=== PATIENT | female | born 1990 | race Caucasian/White ===

== ENCOUNTER 2016-07-22 09:00 | Inpatient (IN) | payer OTHER ==
[~2016-07-22] VITALS: Ht 167.6 cm; Wt 55.0 kg
[2016-07-29] VITALS (26 sets, daily range): BP systolic 102–146; BP diastolic 55–80; PULSE 55–70; RESP 14–25; Ht 167.6 cm; Wt 55.0 kg
--- NOTE | 2016-07-29 06:43 | HPN ---
Date/Time of Note Date/Time of Note DATE: 07/29/16 TIME: 06:43 Interval H&P Admission Note Pt. seen H&P reviewed: No system changes BALA RIGGINS MD Jul 29, 2016 06:43
[2016-07-29] MEDS ORDERED: NEOSTIGMINE 3 MG/3 ML SYRINGE ONE (07:00)
[2016-07-29] MEDS ORDERED: GLYCOPYRROLATE 0.4 MG INJ ONE (07:00)
[2016-07-29] MEDS ORDERED: ROCURONIUM 50 MG INJ ONE (07:00)
[2016-07-29] MEDS ORDERED: DEXAMETHASONE 1 MG TAB PO ONE (10:00)
[2016-07-29] MEDS ORDERED: GABAPENTIN 300 MG CAP PO ONE (10:00)
[2016-07-29] MEDS: BUPIVACAINE 0.5% (SDV) 30 ML, morphine SULFATE (PF) 8 MG, EPINEPHrine 0.3 MG, KETOROLAC... IRR SCH ×14 (10:00→12:17)
[2016-07-29] MEDS ORDERED: traMADol 50 MG TAB PO ONE (10:00)
[2016-07-29 10:39] LABS: ADD SCAN DIFF NO
[2016-07-29 10:43] LABS: BASOPHILS % 0.8 % (0.0-2.0); EOSINOPHILS # 0.1 10^3/ul (0.0-0.5); EOSINOPHILS % 2.4 % (0.0-7.0); HEMATOCRIT 33.4 % (37.0-47.0); HEMOGLOBIN 11.4 g/dl (12.0-16.0); LYMPHOCYTES # 2.3 10^3/ul (0.8-2.9); LYMPHOCYTES % 45.2 % (15.0-51.0); MEAN CORPUSCULAR HGB CONC 34.1 g/dl (32.0-37.0); MEAN CORPUSCULAR VOLUME 99.7 fl (82.0-101.0); MEAN PLATELET VOLUME 8.7 fl (7.4-10.4); MONOCYTE # 0.4 10^3/ul (0.3-0.9); MONOCYTES % 8.8 % (0.0-11.0); NEUTROPHIL # 2.1 10^3/ul (1.6-7.5); NEUTROPHILS % 42.6 % (39.0-77.0); PLATELET COUNT 286 10^3/UL (140-415); RED BLOOD COUNT 3.35 10^6/ul (4.20-5.40); RED CELL DISTRIBUTION WIDTH 11.6 % (11.5-14.5)
[2016-07-29 10:46] LABS: INR 0.98; PARTIAL THROMBOPLASTIN TIME 32.5 Sec (25.0-35.0)
[2016-07-29] MEDS ORDERED: SOD CHLORIDE 0.9% 1,000 ML IV SCH (11:00)
[2016-07-29 11:19] LABS: ADD UMIC NO; URINE BILIRUBIN (Dip) NEGATIVE (NEGATIVE); URINE BLOOD (Dip) NEGATIVE (NEGATIVE); URINE COLOR LT. YELLOW (YELLOW); URINE GLUCOSE (Dip) NEGATIVE (NEGATIVE); URINE KETONES (Dip) NEGATIVE (NEGATIVE); URINE LEUKOCYTE ESTERASE (Dip) NEGATIVE (NEGATIVE); URINE NITRITE (Dip) NEGATIVE (NEGATIVE); URINE TOTAL PROTEIN (Dip) NEGATIVE (NEGATIVE); URINE UROBILINOGEN (Dip) 0.2 E.U./dL (0.1-1.0)
[2016-07-29] MEDS ORDERED: MORP15TA92 PO (11:25)
[2016-07-29] MEDS ORDERED: MODA200T35 PO (11:34)
[2016-07-29] MEDS ORDERED: LOSA25TA5 PO (11:34)
[2016-07-29] MEDS ORDERED: QUET50TA16 PO (11:34)
[2016-07-29] MEDS ORDERED: ALBU2.5V9 IH (11:34)
[2016-07-29] MEDS ORDERED: DOCU-144 PO (11:34)
[2016-07-29] MEDS ORDERED: INDO75CA PO (11:34)
[2016-07-29] MEDS ORDERED: DULO60CA6 PO (11:34)
[2016-07-29] MEDS ORDERED: LISD30CA5 PO (11:34)
[2016-07-29] MEDS ORDERED: LAMO200T18 PO (11:34)
[2016-07-29] MEDS ORDERED: MONT10TA21 PO (11:34)
[2016-07-29] MEDS ORDERED: POLY17PO6 PO (11:34)
[2016-07-29] MEDS ORDERED: GABA250S4 PO (11:34)
[2016-07-29] MEDS ORDERED: ETOMIDATE 20 MG INJ ONE (11:44)
[2016-07-29] MEDS ORDERED: FENTAnyl 50 MCG/ML VIAL ONE ×2 (11:44→13:26)
[2016-07-29] MEDS ORDERED: DEXAMETHASONE 4 MG/ML 1 ML INJ ONE (11:44)
[2016-07-29] MEDS ORDERED: ONDANSETRON 4 MG INJ ONE (11:44)
[2016-07-29] MEDS ORDERED: MIDAZOLAM 1 MG/ML 2 ML INJ ONE (11:44)
[2016-07-29] MEDS ORDERED: LIDOCAINE 100 MG SYRINGE ONE (11:44)
[2016-07-29] MEDS ORDERED: LABETALOL HCL 20MG INJ ONE (11:44)
[2016-07-29] MEDS ORDERED: EPHEDrine SULFATE 50 MG/5 ML SYG ONE (11:44)
[2016-07-29] MEDS ORDERED: CEFAZOLIN 1 GM INJ ONE (12:11)
[2016-07-29] MEDS ORDERED: METOCLOPRAMIDE 10 MG INJ ONE (13:16)
[2016-07-29] MEDS ORDERED: ONDANSETRON 4 MG INJ IV PRN ×2 (13:30)
[2016-07-29] MEDS ORDERED: LABETALOL HCL 20MG INJ IV PRN (13:30)
[2016-07-29] MEDS ORDERED: TRIMETHOBENZAMIDE 100 MG/ML VIAL IM PRN (13:30)
[2016-07-29] MEDS ORDERED: EPHEDrine SULFATE 50 MG/5 ML SYG IV PRN (13:30)
[2016-07-29] MEDS ORDERED: morphine LIQ (10 MG/5 ML) CUP PO PRN ×2 (13:30→17:31)
[2016-07-29] MEDS ORDERED: ZOLPIDEM 5 MG TAB PO PRN (13:30)
[2016-07-29] MEDS ORDERED: DIPHENHYDRAMINE 50 MG INJ IV PRN ×2 (13:30)
[2016-07-29] MEDS ORDERED: MAGNESIUM HYDROXIDE 30ML CUP PO PRN (13:30)
[2016-07-29] MEDS ORDERED: FENTAnyl 50 MCG/ML VIAL IV PRN ×2 (13:30)
[2016-07-29] MEDS ORDERED: hydrALAzine 20 MG INJ IV PRN (13:30)
[2016-07-29] MEDS ORDERED: MIDAZOLAM 1 MG/ML 2 ML INJ IV PRN (13:30)
[2016-07-29] MEDS ORDERED: morphine 10 MG INJ IM PRN (13:30)
[2016-07-29] MEDS: FENTAnyl 50 MCG/ML VIAL IV PRN ×2 (13:42→13:49)
--- NOTE | 2016-07-29 14:20 | OPR ---
DATE OF OPERATION: 07/29/2016 PREOPERATIVE DIAGNOSIS: Left hip labral tear. POSTOPERATIVE DIAGNOSES: 1. Left hip labral tear 2. Left hip capsular laxity. PROCEDURES PERFORMED: 1. Left hip arthroscopic labral repair. 2. Left hip arthroscopic capsular closure. SURGEON: Bala Tello MD INFORMATION CLERK: Roly Aparicio MD Assistants surgeon, Roly Aparicio MD, was asked to be present at my request as a result of the complexi ty associated with the procedure, including positioning of the extremity, manipulation and protectio n of the neurovascular structures. In my opinion, the assistance offered by a hand frame surgical elastic knitter i s insufficient and Dr. Aparicio should be compensated for his time. PROCEDURE IN DETAIL: Following administration of general endotracheal anesthesia, the patient was p laced in the supine position on the [employer] traction device. The left lower extremity was then identified and properly prepped and draped. Traction was applied across the left lower extremi ty and diagnostic anterior and anterolateral portals were then established using endoscopic and fluo roscopic guidance. Diagnostic arthroscopy revealed that there is anterior labral tearing and frayin g with significant synovial reactive tissue in the anterior capsule and significant anterior capsula r laxity. More laterally, the labrum was relatively normal. The tear essentially was from the abou t 10 o'clock position to the 2 o'clock position. The ligamentum teres was normal. The articular ca rtilage of the acetabulum and femur were normal. Capsulotomy was then performed and carefully protected. The sublabral recess was then cleared of so ft tissue and two #2 sutures were then passed around the labrum circumferentially. Each of 2 suture s was incorporated into an Arthrex PushLock anchor. The anchors were impacted and a solid repair of the labrum was completed. Following the completion, the traction was removed. The peripheral comp artment was evaluated. No significant peripheral issues were noted. The capsular closure was then undertaken with the penetrator first on the lateral anchor. A mattress suture was created through t he lateral capsular tissue. Sliding knot was then used for imbrication of the lateral aspect of the capsule. A solid lateral closure was obtained. Following this, the arthroscope was then switched to the lateral portal. Through the anterior portal, the anterior suture was then also passed throug h the capsule in a mattress fashion and the capsular closure was completed. Good stability was note d. The joint was irrigated. The portals closed using interrupted 4-0 Monocryl sutures, Steri-Strips, s terile dressing. The patient was awakened, transported to recovery in stable condition, tolerating the procedure well. Dictated By: BALA ESTEVES/CED Conf#: [id number] DID#: [id number]
[2016-07-29] MEDS: LACTATED RINGER'S 1,000 ML IV SCH ×2 (15:23)
[2016-07-29] MEDS: morphine 2 MG INJ IV PRN (16:19)
--- NOTE | 2016-07-29 16:36 | RADRPT ---
PROCEDURE: Fluoroscopic assistance for a left hip arthropathy CLINICAL INDICATION: Left hip pain TECHNIQUE: Approximately 13.5 seconds of fluoroscopic assistance are provided under the supervisio n of Dr. Tello and August 31 intraoperative exposures are submitted to the PACS for review COMPARISON: None available FINDINGS: The images demonstrate metallic instruments consistent with arthroscopic projecting over the superio r aspect of the left hip joint. RPTAT:HJJR IMPRESSION: Fluoroscopic assistance for left hip arthroscopic surgery. Physician Zelalem Date Time Electronically viewed and signed by Physician Zelalem on 07/29/2016 16:36 /
--- NOTE | 2016-07-29 17:56 | PDOCDIS ---
Discharge Instructions DIAGNOSIS Discharge Diagnosis: left hip labral tear CONDITION Patient Condition: Good HOME CARE INSTRUCTIONS: Diet Instructions: Regular ACTIVITY: Activity Restrictions: Slowly Increase Activity Bathing Restrictions: Shower FOLLOW UP/APPOINTMENTS Appointments Two weeks SCHOOL/WORK RELEASE May return to School/Work with: With Restrictions School/Work Release Comment: Foot flat weight bearing for four weeks BALA RIGGINS MD Jul 29, 2016 17:56
[2016-07-29] MEDS: [UNRECOGNIZED DRUG - REMARK] XX SCH (18:00)
[2016-07-29] MEDS: DEXAMETHASONE 2 MG TAB PO SCH ×2 (18:36→23:47)
[2016-07-29] MEDS ORDERED: MONTELUKAST 10 MG TAB PO SCH (21:00)
[2016-07-29] MEDS ORDERED: ALBUTEROL 0.5% (NEB) 2.5 MG/0.5 ML AMP INH SCH (21:00)
[2016-07-29] MEDS ORDERED: LAMOTRIGINE 100 MG TAB PO SCH (21:00)
[2016-07-29] MEDS ORDERED: QUETIAPINE 25 MG TAB PO SCH (21:00)
[2016-07-29] MEDS ORDERED: DULOXETINE 20 MG CAP DR PO SCH (21:00)
[2016-07-29] MEDS ORDERED: GABAPENTIN 300 MG CAP PO SCH (21:00)
[2016-07-29] MEDS: SENNA/DOCUSATE NA (8.6MG/50MG) TAB PO SCH (21:05)
[2016-07-29] MEDS: POLYETHYLENE GLYCOL 17 GM PACKET PO SCH (21:05)
[2016-07-29] MEDS: DOCUSATE SODIUM 100 MG CAP PO SCH (21:05)
[2016-07-29] MEDS: KETOROLAC 15 MG INJ IV PRN (21:14)
[2016-07-30] MEDS: [UNRECOGNIZED DRUG - REMARK] XX SCH ×2 (02:00→10:00)
[2016-07-30] MEDS: LACTATED RINGER'S 1,000 ML IV SCH ×3 (02:22→09:20)
[2016-07-30] MEDS: KETOROLAC 15 MG INJ IV PRN ×2 (04:16→10:34)
--- NOTE | 2016-07-30 05:08 | DS ---
Date/Time of Note Date/Time of Note DATE: 07/30/16 TIME: 05:06 Discharge Summary Admission/Discharge Info Admit Date/Time Jul 29, 2016 at 09:38 Discharge Date/Time July 30, 2016 once ambulating and freely urinating Final Diagnosis Left hip labral tearing Patient Condition: Good Procedures Left hip arthroscopy with labral repair Hx of Present Illness Pain and catching in left hip Hospital Course Hip arthroscopy, followed by observation for any hemodynamic instability. She had difficulty voiding and had straight caths three times. Discharged home to be followed in two weeks in the office. Home Meds Reported Medications Lisdexamfetamine Dimesylate (Vyvanse) 30 Mg Capsule, 30 MG PO AM, #30 CAP 07/29/16 Polyethylene Glycol* (Miralax*) 17 Gm Powd.pack, 17 GM PO BID, #60 PACKET 07/29/16 Docusate Sodium* (Colace*) 100 Mg Capsule, 100 MG PO BID, #60 CAP 07/29/16 Lamotrigine* (Lamictal*) 200 Mg Tablet, 200 MG PO DAILY, TAB 07/29/16 Losartan Potassium* (Losartan Potassium*) 25 Mg Tablet, 25 MG PO DAILY, TAB 07/29/16 Albuterol Sulfate (Albuterol Sulfate) 2.5 Mg/0.5 Ml Vial.neb, 2.5 MG IH 07/29/16 Gabapentin (GABAPENTIN) 250 Mg/5 Ml Solution, 200 MG PO, ML 07/29/16 Quetiapine Fumarate* (Seroquel*) 50 Mg Tablet, 50 MG PO DAILY, TAB 07/29/16 Duloxetine Hcl* (Cymbalta*) 60 Mg Capsule.dr, 80 MG PO DAILY, CAP 07/29/16 Modafinil* (Modafinil*) 200 Mg Tablet, 200 MG PO DAILY, TAB 07/29/16 Indomethacin (Indomethacin) 75 Mg Capsule.sa, 75 MG PO BID 07/29/16 Montelukast Sodium* (Singulair*) 10 Mg Tablet, 10 MG PO QHS, #30 TAB 07/29/16 Morphine Sulfate* (Ms Contin*) 15 Mg Tablet.sa, 15 MG PO DAILY Y for PAIN, TAB 07/29/16 Follow-up Plan Two weeks Pending Labs Laboratory Tests Test 07/29/16 10:18 07/29/16 10:30 Urine Bilirubin NEGATIVE (NEGATIVE) Urine Clarity CLEAR (CLEAR) Urine Color LT. YELLOW (YELLOW) Urine Glucose NEGATIVE% (NEGATIVE) Urine Hemoglobin NEGATIVE (NEGATIVE) Urine Ketones NEGATIVE (NEGATIVE) Urine Leukocyte Esterase NEGATIVE (NEGATIVE) Urine Nitrite NEGATIVE (NEGATIVE) Urine Specific [place] 1.025 (1.003-1.030) Urine Total Protein NEGATIVE (NEGATIVE) Urine Urobilinogen 0.2 E.U./dL (0.1-1.0) Urine pH 5.5 (5.0-9.0) Activated Partial Thromboplast Time 32.5Sec (25.0-35.0) Basophils # 0.010^3/ul (0.0-0.1) Basophils % 0.8% (0.0-2.0) Eosinophils # 0.110^3/ul (0.0-0.5) Eosinophils % 2.4% (0.0-7.0) Hematocrit 33.4% (37.0-47.0) Hemoglobin 11.4g/dl (12.0-16.0) INR International Normalized Ratio 0.98 Lymphocytes # 2.310^3/ul (0.8-2.9) Lymphocytes % 45.2% (15.0-51.0) Mean Corpuscular Hemoglobin 34.0pg (29.0-33.0) Mean Corpuscular Hemoglobin Concent 34.1g/dl (32.0-37.0) Mean Corpuscular Volume 99.7fl (82.0-101.0) Mean Platelet Volume 8.7fl (7.4-10.4) Monocytes # 0.410^3/ul (0.3-0.9) Monocytes % 8.8% (0.0-11.0) Neutrophils # 2.110^3/ul (1.6-7.5) Neutrophils % 42.6% (39.0-77.0) Nucleated Red Blood Cells # 0.010^3/ul (0.0-0.0) Nucleated Red Blood Cells % 0.0/100WBC (0.0-0.0) Platelet Count 38119^3/UL (140-415) Prothrombin Time 13.0Sec (12.2-14.2) Prothrombin Time Ratio 1.0 Red Blood Count 3.3510^6/ul (4.20-5.40) Red Cell Distribution Width 11.6% (11.5-14.5) White Blood Count 5.010^3/ul (4.8-10.8) BALA RIGGINS MD Jul 30, 2016 05:08
[2016-07-30 05:55] VITALS: BP 112/71; PULSE 60; RESP 18
[2016-07-30] MEDS: DEXAMETHASONE 2 MG TAB PO SCH (05:57)
[2016-07-30] MEDS: morphine 2 MG INJ IV PRN (07:28)
[2016-07-30 08:03] VITALS: BP 117/68; RESP 18
[2016-07-30] MEDS ORDERED: QUETIAPINE 25 MG TAB PO SCH (09:00)
[2016-07-30] MEDS ORDERED: LAMOTRIGINE 100 MG TAB PO SCH (09:00)
[2016-07-30] MEDS ORDERED: DULOXETINE 20 MG CAP DR PO SCH (09:00)
[2016-07-30] MEDS ORDERED: LISDEXAMFETAMINE DIMESYLATE 30 MG PO SCH (09:00)
[2016-07-30] MEDS ORDERED: MODAFINIL 200 MG TAB PO SCH (09:00)
[2016-07-30] MEDS ORDERED: LOSARTAN 25 MG TAB PO SCH (09:00)
[2016-07-30] MEDS ORDERED: ASPIRIN 81 MG TAB PO SCH (09:00)
[2016-07-30] MEDS: DOCUSATE SODIUM 100 MG CAP PO SCH (09:02)
[2016-07-30] MEDS: POLYETHYLENE GLYCOL 17 GM PACKET PO SCH (09:02)
[2016-07-30] MEDS: SENNA/DOCUSATE NA (8.6MG/50MG) TAB PO SCH (09:03)
--- NOTE | 2016-07-30 10:33 | PN ---
Date/Time of Note Date/Time of Note DATE: 07/30/16 TIME: 10:29 24 hour Interval Summary Feeling well this AM. She had urinary retention which required straight catheterization overnight. Now she is voiding freely. No nausea or emesis. She is eating well. Physical Exam Left hip dressing intact. Some numbness over the lateral femoral cutaneous nerve from her block distally she is neurovascularly intact Vital Signs Date Time Temp Pulse Resp B/P Pulse Ox O2 Delivery O2 Flow Rate FiO2 07/30/16 08:03 97.8 60 18 117/68 96 07/30/16 05:55 Room Air Intake and Output 07/29/16 07/29/16 07/30/16 15:00 23:00 07:00 Intake Total 120 ml 200 ml 500 ml Output Total 2030 ml 1450 ml Balance -1910 ml 200 ml -950 ml VTE Prophylaxis VTE Prophylaxis Intervention: ambulation, anti-embolic stocking Lines/Catheters IV Catheter Type: Peripheral IV Ruiz in Place: No Results Result Diagram: 07/29/16 1030 Results 24hrs Laboratory Tests Test 07/29/16 10:30 Activated Partial Thromboplast Time 32.5 Basophils # 0.0 Basophils % 0.8 Eosinophils # 0.1 Eosinophils % 2.4 Hematocrit 33.4 L Hemoglobin 11.4 L INR International Normalized Ratio 0.98 Lymphocytes # 2.3 Lymphocytes % 45.2 Mean Corpuscular Hemoglobin 34.0 H Mean Corpuscular Hemoglobin Concent 34.1 Mean Corpuscular Volume 99.7 Mean Platelet Volume 8.7 Monocytes # 0.4 Monocytes % 8.8 Neutrophils # 2.1 Neutrophils % 42.6 Nucleated Red Blood Cells # 0.0 Nucleated Red Blood Cells % 0.0 Platelet Count 286 Prothrombin Time 13.0 Prothrombin Time Ratio 1.0 Red Blood Count 3.35 L Red Cell Distribution Width 11.6 White Blood Count 5.0 Assessment/Plan Chief Complaint/Hosp Course Hip arthroscopy, followed by observation for any hemodynamic instability. She had difficulty voiding and had straight caths three times. Discharged home to be followed in two weeks in the office. Problems: Assessment/Plan 26 y/o F s/p left hip arthroscopy doing well pain control with oral morphine as needed indomethacin for DVT ppx Ambulation/SCD's for DVT ppx Crutches for ambulation urinary retention has now resolved [place] for [place] home today. Medications Medications Home Meds Reported Medications Lisdexamfetamine Dimesylate (Vyvanse) 30 Mg Capsule, 30 MG PO AM, #30 CAP 07/29/16 Polyethylene Glycol* (Miralax*) 17 Gm Powd.pack, 17 GM PO BID, #60 PACKET 07/29/16 Docusate Sodium* (Colace*) 100 Mg Capsule, 100 MG PO BID, #60 CAP 07/29/16 Lamotrigine* (Lamictal*) 200 Mg Tablet, 200 MG PO DAILY, TAB 07/29/16 Losartan Potassium* (Losartan Potassium*) 25 Mg Tablet, 25 MG PO DAILY, TAB 07/29/16 Albuterol Sulfate (Albuterol Sulfate) 2.5 Mg/0.5 Ml Vial.neb, 2.5 MG IH 07/29/16 Gabapentin (GABAPENTIN) 250 Mg/5 Ml Solution, 200 MG PO, ML 07/29/16 Quetiapine Fumarate* (Seroquel*) 50 Mg Tablet, 50 MG PO DAILY, TAB 07/29/16 Duloxetine Hcl* (Cymbalta*) 60 Mg Capsule.dr, 80 MG PO DAILY, CAP 07/29/16 Modafinil* (Modafinil*) 200 Mg Tablet, 200 MG PO DAILY, TAB 07/29/16 Indomethacin (Indomethacin) 75 Mg Capsule.sa, 75 MG PO BID 07/29/16 Montelukast Sodium* (Singulair*) 10 Mg Tablet, 10 MG PO QHS, #30 TAB 07/29/16 Morphine Sulfate* (Ms Contin*) 15 Mg Tablet.sa, 15 MG PO DAILY Y for PAIN, TAB 07/29/16 MADI RUTHERFORD MD Jul 30, 2016 10:33
--- NOTE | 2016-07-30 13:41 | RADRPT ---
Vent Rate: 60 bpm RR Interval: 0 msec ME Interval: 152 msec QRS Duration: 88 msec QT Interval: 456 msec QTC Interval: 456 msec P-R-T Nye: -1 - 75 - 67 degrees Electronic atrial pacemaker Cannot rule out Anterior infarct , age undetermined Abnormal ECG Electronically Signed By: Davian Miguel [id number]
== END 2016-07-30 11:40 | disposition home or self-care (01) | DRG 482 ==
LOC: EDSTATUS 09:00 → REC 07-29 09:38 → MS1 07-29 15:00
PROVIDERS: ADMIT Orthopaedic Surgery; ATTEND Orthopaedic Surgery
PROC: 0MU Bursae and Ligaments, Supplement (ICD-10-PCS; 2016-07-29)
PROC: 0SNB0ZZ Release Left Hip Joint, Open Approach (ICD-10-PCS; principal; 2016-07-29 11:30)
DX: S73.102A Unspecified sprain of left hip, initial encounter (principal); I10 Essential (primary) hypertension; M25.252 Flail joint, left hip; R33.9 Retention of urine, unspecified; M16.9 Osteoarthritis of hip, unspecified; Z95.0 Presence of cardiac pacemaker
CPT/HCPCS: 73530; 81003; 84703; 85025; 85610; 85730; 93005; 97162; A4310; J0171; J0690; J0735; J1100; J1200; J1644; J1885; J2001; J2250; J2270; J2274; J2405; J2710; J2765; J3010; J3370; J7120

== ENCOUNTER 2016-09-30 07:28 | Inpatient (IN) | payer MEDICAID, OTHER ==
[~2016-09-30] VITALS: Ht 167.6 cm; Wt 55.2 kg
[2016-09-30] VITALS (31 sets, daily range): BP systolic 95–125; BP diastolic 42–78; PULSE 56–82; RESP 10–22; Ht 167.6 cm; Wt 55.2 kg
--- NOTE | 2016-09-30 07:03 | HPN ---
Date/Time of Note Date/Time of Note DATE: 09/30/16 TIME: 07:03 Interval H&P Admission Note Pt. seen H&P reviewed: No system changes BALA RIGGINS MD September 30, 2016 07:03
[~2016-09-30 07:28] MED LIST: BUPIVACAINE 0.5% (SDV) 30 ML, morphine SULFATE (PF) 8 MG, EPINEPHrine 0.3 MG, KETOROLAC... IRR SCH; CEFAZOLIN 2 GM/50 ML (PMX) 50 ML IVPB ONE; DOCU-144 PO; DULO60CA6 PO; GABA250S4 PO; GABAPENTIN 300 MG CAP PO ONE; INDO75CA PO; LAMO200T18 PO; LISD30CA5 PO; LOSA25TA5 PO; MODA200T35 PO; MONT10TA21 PO; MORP15TA92 PO; POLY17PO6 PO; QUET50TA16 PO; RTPRO5 IH; traMADol 50 MG TAB PO ONE
[2016-09-30] MEDS ORDERED: [UNRECOGNIZED DRUG - CODE] INHALATION (08:45)
[2016-09-30] MEDS ORDERED: ALBU18HF INHALATION (08:46)
[2016-09-30] MEDS ORDERED: LAMO200T18 PO (08:47)
[2016-09-30] MEDS ORDERED: FERR325C PO (08:48)
[2016-09-30] MEDS ORDERED: MULTI PO (08:49)
[2016-09-30] MEDS ORDERED: CALC500T91 PO (08:50)
[2016-09-30] MEDS ORDERED: CYAN100T PO (08:50)
[2016-09-30] MEDS ORDERED: OMEG300C3 PO (08:50)
[2016-09-30 08:51] LABS: ADD SCAN DIFF NO
[2016-09-30] MEDS ORDERED: VORT10TA PO (08:52)
[2016-09-30] MEDS ORDERED: METOCLOPRAMIDE 10 MG INJ ONE (09:03)
[2016-09-30] MEDS ORDERED: MIDAZOLAM 1 MG/ML 2 ML INJ ONE ×2 (09:03→12:09)
[2016-09-30] MEDS ORDERED: ETOMIDATE 20 MG INJ ONE (09:03)
[2016-09-30 09:06] LABS: BASOPHILS % 0.5 % (0.0-2.0); EOSINOPHILS # 0.1 10^3/ul (0.0-0.5); EOSINOPHILS % 3.1 % (0.0-7.0); HEMATOCRIT 35.7 % (37.0-47.0); HEMOGLOBIN 12.1 g/dl (12.0-16.0); LYMPHOCYTES # 2.1 10^3/ul (0.8-2.9); LYMPHOCYTES % 49.5 % (15.0-51.0); MEAN CORPUSCULAR HEMOGLOBIN 33.8 pg (29.0-33.0); MEAN CORPUSCULAR HGB CONC 33.9 g/dl (32.0-37.0); MEAN CORPUSCULAR VOLUME 99.7 fl (82.0-101.0); MONOCYTE # 0.4 10^3/ul (0.3-0.9); MONOCYTES % 10.3 % (0.0-11.0); NEUTROPHIL # 1.5 10^3/ul (1.6-7.5); NEUTROPHILS % 36.4 % (39.0-77.0); PLATELET COUNT 270 10^3/UL (140-415); RED BLOOD COUNT 3.58 10^6/ul (4.20-5.40); RED CELL DISTRIBUTION WIDTH 11.7 % (11.5-14.5); WHITE BLOOD COUNT 4.2 10^3/ul (4.8-10.8)
[2016-09-30 09:16] LABS: ALBUMIN 4.2 g/dl (3.3-4.9)
[2016-09-30 09:17] LABS: INR 0.95; PROTIME 12.7 Sec (12.2-14.2)
[2016-09-30 09:18] LABS: PARTIAL THROMBOPLASTIN TIME 28.4 Sec (25.0-35.0)
[2016-09-30 09:19] LABS: ALBUMIN/GLOBULIN RATIO 1.35; BILIRUBIN,INDIRECT 0.3 mg/dl (0-1.1); BILIRUBIN,TOTAL 0.3 mg/dl (0.2-1.3); TOTAL PROTEIN 7.3 g/dl (6.1-8.1)
[2016-09-30 09:24] LABS: CALCIUM 9.2 mg/dl (8.4-10.2); CREATININE 0.71 mg/dl (0.44-1.00); POTASSIUM 3.8 mmol/L (3.5-5.1)
[2016-09-30] MEDS ORDERED: FENTAnyl 50 MCG/ML VIAL ONE (09:49)
[2016-09-30] MEDS ORDERED: CEFAZOLIN 1 GM INJ ONE (09:49)
[2016-09-30 10:30] LABS: ADD UMIC YES; URINE BILIRUBIN (Dip) NEGATIVE (NEGATIVE); URINE BLOOD (Dip) 3+ (NEGATIVE); URINE COLOR LT. YELLOW (YELLOW); URINE GLUCOSE (Dip) NEGATIVE (NEGATIVE); URINE KETONES (Dip) NEGATIVE (NEGATIVE); URINE LEUKOCYTE ESTERASE (Dip) NEGATIVE (NEGATIVE); URINE NITRITE (Dip) NEGATIVE (NEGATIVE); URINE TOTAL PROTEIN (Dip) NEGATIVE (NEGATIVE); URINE UROBILINOGEN (Dip) 0.2 E.U./dL (0.1-1.0)
[2016-09-30 10:39] LABS: BACTERIA,URINE FEW; URINE RBCS 0-2 /HPF (0)
[2016-09-30] MEDS ORDERED: MEPERIDINE 100 MG INJ ONE (11:40)
[2016-09-30] MEDS ORDERED: DIPHENHYDRAMINE 50 MG INJ IV PRN ×2 (12:00)
[2016-09-30] MEDS ORDERED: HYDROmorphONE (0.2 MG/ML) 10ML SYG IV PRN ×3 (12:00)
[2016-09-30] MEDS ORDERED: DEXAMETHASONE 2 MG TAB PO SCH (12:00)
[2016-09-30] MEDS ORDERED: ONDANSETRON 4 MG INJ IV PRN (12:00)
[2016-09-30] MEDS ORDERED: morphine (ER) 15 MG TAB PO PRN (12:00)
[2016-09-30] MEDS ORDERED: ZOLPIDEM 5 MG TAB PO PRN (12:00)
[2016-09-30] MEDS ORDERED: MAGNESIUM HYDROXIDE 30ML CUP PO PRN (12:00)
[2016-09-30] MEDS ORDERED: METOCLOPRAMIDE 10 MG INJ IV PRN (12:00)
[2016-09-30] MEDS ORDERED: ALBUTEROL HFA 8 GM INHALER INH PRN (12:00)
[2016-09-30] MEDS ORDERED: CROMOLYN 20 MG/2 ML INH SCH (12:00)
[2016-09-30] MEDS ORDERED: BETHANECHOL 25 MG TAB PO PRN (12:00)
[2016-09-30] MEDS ORDERED: KETOROLAC 15 MG INJ IV PRN (12:00)
--- NOTE | 2016-09-30 12:03 | OPR ---
DATE OF OPERATION: 09/30/2016 SURGEON: Bala Tello MD BUSINESS EDUCATION TEACHER: John Mercado MD PREOPERATIVE DIAGNOSIS: Right hip labral tear. POSTOPERATIVE DIAGNOSES: 1. Right hip labral tear. 2. Right hip capsular laxity. OPERATION PERFORMED: Right hip arthroscopic labral repair with capsular closure. Engineering Test Mechanic Surgeon, John Mercado MD, was asked to be present at my request as a result of the signi ficant surgical complexity associated with this procedure, including manipulation of the 70-degree a rthroscope, as well as suture management, which was highly complex. In my opinion, the assistance o ffered by a sterile tech is insufficient and Dr. Mercado should be compensated for his time. PROCEDURE IN DETAIL: Following administration of general endotracheal anesthesia, the patient was p laced in the supine position. The area was locally infiltrated with anesthetic. Sterile prep and drape were then undertaken. Anterior and anterolateral portals were then establish ed under fluoroscopic and endoscopic guidance. Diagnostic arthroscopy revealed an anterior labral d etachment from about the 2 o'clock position posteriorly to the 9 o'clock position. There was soften ing at the chondral labral junction with no geri delamination. There was significant synovitis in the capsule. In addition, there was moderate synovitis in the notch. The capsulotomy was then performed. The sublabral recess was then cleared of soft tissue and 2 circ umferential stitches were then passed around the labral detachment. The sutures were then each inco rporated into an Arthrex PushLock anchor. The anchors were impacted. The leg was flexed. The peripheral compartment evaluated. No significant peripheral compartment is sues were noted. The capsular closure was then completed. Specifically, a suture penetrator was then used first for the lateral sutures. These were grasped inside the capsule with a suture penetrator and a sliding k not was then used for closure of the capsule laterally. The same thing was repeated anteriorly. A solid closure was obtained. The joint was then irrigated. Portals closed using 4-0 Monocryl suture s, Steri-Strips, sterile dressing. The patient was awakened and transported to recovery in stable c ondition, tolerating the procedure well. Dictated By: BALA ESTEVES/CED Conf#: [id number] [facility]#: [id number]
[2016-09-30] MEDS ORDERED: MIDAZOLAM 1 MG/ML 2 ML INJ IV ONE (12:30)
--- NOTE | 2016-09-30 13:27 | RADRPT ---
PROCEDURE: Intraoperative imaging of the left hip with fluoroscopy. CLINICAL INDICATION: Left hip pain. Intraoperative. TECHNIQUE: 5 images of the left hip were obtained in the operating room with an image intensifier. No radiologist was in attendance. 13.5 seconds of fluoroscopy time was used. COMPARISON: No prior study is available for comparison. FINDINGS: Images demonstrate surgical instruments overlying the left hip IMPRESSION: 1. Satisfactory intraoperative imaging of the left hip. RPTAT: QQ .Taqueria Castillo MD, MD Date Time Electronically viewed and signed by .Taqueria Castillo MD, on 09/30/2016 13:26 .R/
[2016-09-30] MEDS ORDERED: [UNRECOGNIZED DRUG - REMARK] XX SCH (14:30)
[2016-09-30] MEDS: LACTATED RINGER'S 1,000 ML IV SCH ×2 (14:39→17:29)
[2016-09-30] MEDS: morphine 2 MG INJ IV PRN ×3 (14:54→23:11)
[2016-09-30] MEDS: morphine 4 MG/ML VIAL IV PRN (18:12)
[2016-09-30] MEDS ORDERED: GABAPENTIN 300 MG CAP PO SCH (21:00)
[2016-09-30] MEDS ORDERED: MONTELUKAST 10 MG TAB PO SCH (21:00)
[2016-09-30] MEDS: SENNA/DOCUSATE NA (8.6MG/50MG) TAB PO SCH (21:34)
[2016-09-30] MEDS: DOCUSATE SODIUM 100 MG CAP PO SCH (21:34)
[2016-09-30] MEDS ORDERED: LAMOTRIGINE 100 MG TAB PO SCH (21:47)
[2016-09-30] MEDS: DEXAMETHASONE 2 MG TAB PO SCH (23:06)
[2016-10-01] MEDS: LACTATED RINGER'S 1,000 ML IV SCH (00:39)
[2016-10-01 02:35] VITALS: BP 111/59; RESP 20
[2016-10-01] MEDS: ONDANSETRON 4 MG INJ IV PRN ×2 (03:46→11:06)
[2016-10-01 05:10] VITALS: BP 110/60; RESP 20
[2016-10-01] MEDS: morphine 2 MG INJ IV PRN (05:21)
[2016-10-01] MEDS: DEXAMETHASONE 2 MG TAB PO SCH ×2 (05:21→11:07)
--- NOTE | 2016-10-01 06:40 | PDOCDIS ---
Discharge Instructions DIAGNOSIS Discharge Diagnosis: Hip labral tear CONDITION Patient Condition: Good HOME CARE INSTRUCTIONS: Diet Instructions: Regular ACTIVITY: Activity Restrictions: Slowly Increase Activity Keep Limb Elevated Bathing Restrictions: Shower FOLLOW UP/APPOINTMENTS Appointments Two weeks SCHOOL/WORK RELEASE May return to School/Work with: With Restrictions School/Work Release Comment: Foot flat weight bearing for four weeks with no twisting BALA RIGGINS MD October 01, 2016 06:40
--- NOTE | 2016-10-01 06:43 | PN ---
Date/Time of Note Date/Time of Note DATE: 10/01/16 TIME: 06:42 24 hour Interval Summary Awake and alert with no pain. PE: Wounds clean and dry with no signs DVT. No swelling. NV intact A: S/p hip labral repair. P: PT this am. She will be dc'd after that. Physical Exam Vital Signs Date Time Temp Pulse Resp B/P Pulse Ox O2 Delivery O2 Flow Rate FiO2 10/01/16 05:10 98.0 60 20 110/60 98 09/30/16 19:01 Room Air 09/30/16 14:41 2.0 Intake and Output 09/30/16 09/30/16 10/01/16 14:59 22:59 06:59 Intake Total 1000 ml 1100 ml 1200 ml Output Total 270 ml 800 ml 2850 ml Balance 730 ml 300 ml -1650 ml VTE Prophylaxis VTE Prophylaxis Intervention: anti-embolic stocking Lines/Catheters IV Catheter Type: Saline Lock Ruiz in Place: No Results Result Diagram: 09/30/16 0845 09/30/16 0845 Results 24hrs Laboratory Tests Test 09/30/16 08:45 09/30/16 09:45 White Blood Count 4.2 L Red Blood Count 3.58 L Hemoglobin 12.1 Hematocrit 35.7 L Mean Corpuscular Volume 99.7 Mean Corpuscular Hemoglobin 33.8 H Mean Corpuscular Hemoglobin Concent 33.9 Red Cell Distribution Width 11.7 Platelet Count 270 Mean Platelet Volume 9.0 Neutrophils % 36.4 L Lymphocytes % 49.5 Monocytes % 10.3 Eosinophils % 3.1 Basophils % 0.5 Nucleated Red Blood Cells % 0.0 Neutrophils # 1.5 L Lymphocytes # 2.1 Monocytes # 0.4 Eosinophils # 0.1 Basophils # 0.0 Nucleated Red Blood Cells # 0.0 Prothrombin Time 12.7 Prothrombin Time Ratio 1.0 INR International Normalized Ratio 0.95 Activated Partial Thromboplast Time 28.4 Sodium Level 140 Potassium Level 3.8 Chloride Level 103 Carbon Dioxide Level 27 Anion Gap 14 Blood Urea Nitrogen 18 Creatinine 0.71 Glucose Level 83 Calcium Level 9.2 Total Bilirubin 0.3 Direct Bilirubin 0.00 Indirect Bilirubin 0.3 Aspartate Amino Transf (AST/SGOT) 24 Alanine Aminotransferase (ALT/SGPT) 26 Alkaline Phosphatase 36 L Total Protein 7.3 Albumin 4.2 Globulin 3.10 Albumin/Globulin Ratio 1.35 Urine Color LT. YELLOW Urine Clarity CLEAR Urine pH 5.5 Urine Specific [place] <=1.005 L Urine Ketones NEGATIVE Urine Nitrite NEGATIVE Urine Bilirubin NEGATIVE Urine Urobilinogen 0.2 E.U./dL Urine Leukocyte Esterase NEGATIVE Urine Microscopic RBC 0-2 Urine Microscopic WBC 2-5 Urine Epithelial Cells FEW Urine Bacteria FEW Urine Hemoglobin 3+ H Urine Glucose NEGATIVE Urine Total Protein NEGATIVE Medications Medications Home Meds Reported Medications Vortioxetine Hydrobromide (Brintellix) 10 Mg Tablet, 10 MG PO DAILY, TAB 09/30/16 Calcium Carbonate ([id number]) 500 Mg Tablet, 500 MG PO BID, TAB 09/30/16 Cyanocobalamin* (Vitamin B-12*) 100 Mcg Tablet, 100 MCG PO DAILY, TAB 09/30/16 [place]-3 Fatty Acids (Fish Oil) 300 Mg Capsule, 300 MG PO DAILY, CAP 09/30/16 Multivitamins* (Theragran*) 1 Tab Tab, 1 TAB PO DAILY, TAB 09/30/16 Ferrous Sulfate (Iron) 325 Mg Capsule.er, 325 MG PO DAILY, CAP 09/30/16 Lamotrigine* (Lamictal*) 200 Mg Tablet, 200 MG PO DAILY, TAB 09/30/16 Albuterol Sulfate* (Ventolin HFA*) 18 Gm Hfa.aer.ad, 2 PUFF INHALATION Q6H Y for WHEEZING AND SOB, #1 INHALER 09/30/16 Cromolyn Sodium* (Cromolyn Sodium*) 10 Mg/Ml Nebu, 15 ML INHALATION Q6, VIAL 09/30/16 Lisdexamfetamine Dimesylate (Vyvanse) 30 Mg Capsule, 30 MG PO AM, #30 CAP 07/29/16 Polyethylene Glycol* (Miralax*) 17 Gm Powd.pack, 17 GM PO BID, #60 PACKET 07/29/16 Docusate Sodium* (Colace*) 100 Mg Capsule, 100 MG PO BID, #60 CAP 07/29/16 Losartan Potassium* (Losartan Potassium*) 25 Mg Tablet, 25 MG PO DAILY, TAB 07/29/16 Quetiapine Fumarate* (Seroquel*) 50 Mg Tablet, 50 MG PO DAILY, TAB 07/29/16 Duloxetine Hcl* (Cymbalta*) 60 Mg Capsule.dr, 80 MG PO DAILY, CAP 07/29/16 Modafinil* (Modafinil*) 200 Mg Tablet, 200 MG PO DAILY, TAB 07/29/16 Indomethacin (Indomethacin) 75 Mg Capsule.sa, 75 MG PO BID 07/29/16 Montelukast Sodium* (Singulair*) 10 Mg Tablet, 10 MG PO QHS, #30 TAB 07/29/16 Morphine Sulfate* (Ms Contin*) 15 Mg Tablet.sa, 15 MG PO DAILY Y for PAIN, TAB 07/29/16 Discontinued Reported Medications Lamotrigine* (Lamictal*) 200 Mg Tablet, 200 MG PO DAILY, TAB 07/29/16 Albuterol Sulfate (Albuterol Sulfate) 2.5 Mg/0.5 Ml Vial.neb, 2.5 MG IH 07/29/16 Gabapentin (GABAPENTIN) 250 Mg/5 Ml Solution, 200 MG PO, ML 07/29/16 BALA RIGGINS MD October 01, 2016 06:43
--- NOTE | 2016-10-01 06:44 | DS ---
Date/Time of Note Date/Time of Note DATE: 10/01/16 TIME: 06:43 Discharge Summary Admission/Discharge Info Admit Date/Time September 30, 2016 at 07:28 Discharge Date/Time 10/01/16 after PT Final Diagnosis labral tear, hip Patient Condition: Good Procedures Hip arthroscopy with labral repair Hx of Present Illness Chronic pain in hip Hospital Course Surgery, followed by observation as a result of POTS disease. Stable in AM Home Meds Reported Medications Vortioxetine Hydrobromide (Brintellix) 10 Mg Tablet, 10 MG PO DAILY, TAB 09/30/16 Calcium Carbonate ([id number]) 500 Mg Tablet, 500 MG PO BID, TAB 09/30/16 Cyanocobalamin* (Vitamin B-12*) 100 Mcg Tablet, 100 MCG PO DAILY, TAB 09/30/16 [place]-3 Fatty Acids (Fish Oil) 300 Mg Capsule, 300 MG PO DAILY, CAP 09/30/16 Multivitamins* (Theragran*) 1 Tab Tab, 1 TAB PO DAILY, TAB 09/30/16 Ferrous Sulfate (Iron) 325 Mg Capsule.er, 325 MG PO DAILY, CAP 09/30/16 Lamotrigine* (Lamictal*) 200 Mg Tablet, 200 MG PO DAILY, TAB 09/30/16 Albuterol Sulfate* (Ventolin HFA*) 18 Gm Hfa.aer.ad, 2 PUFF INHALATION Q6H Y for WHEEZING AND SOB, #1 INHALER 09/30/16 Cromolyn Sodium* (Cromolyn Sodium*) 10 Mg/Ml Nebu, 15 ML INHALATION Q6, VIAL 09/30/16 Lisdexamfetamine Dimesylate (Vyvanse) 30 Mg Capsule, 30 MG PO AM, #30 CAP 07/29/16 Polyethylene Glycol* (Miralax*) 17 Gm Powd.pack, 17 GM PO BID, #60 PACKET 07/29/16 Docusate Sodium* (Colace*) 100 Mg Capsule, 100 MG PO BID, #60 CAP 07/29/16 Losartan Potassium* (Losartan Potassium*) 25 Mg Tablet, 25 MG PO DAILY, TAB 07/29/16 Quetiapine Fumarate* (Seroquel*) 50 Mg Tablet, 50 MG PO DAILY, TAB 07/29/16 Duloxetine Hcl* (Cymbalta*) 60 Mg Capsule.dr, 80 MG PO DAILY, CAP 07/29/16 Modafinil* (Modafinil*) 200 Mg Tablet, 200 MG PO DAILY, TAB 07/29/16 Indomethacin (Indomethacin) 75 Mg Capsule.sa, 75 MG PO BID 07/29/16 Montelukast Sodium* (Singulair*) 10 Mg Tablet, 10 MG PO QHS, #30 TAB 07/29/16 Morphine Sulfate* (Ms Contin*) 15 Mg Tablet.sa, 15 MG PO DAILY Y for PAIN, TAB 07/29/16 Discontinued Reported Medications Lamotrigine* (Lamictal*) 200 Mg Tablet, 200 MG PO DAILY, TAB 07/29/16 Albuterol Sulfate (Albuterol Sulfate) 2.5 Mg/0.5 Ml Vial.neb, 2.5 MG IH 07/29/16 Gabapentin (GABAPENTIN) 250 Mg/5 Ml Solution, 200 MG PO, ML 07/29/16 Follow-up Plan Two weeks Pending Labs Laboratory Tests Test 09/30/16 08:45 09/30/16 09:45 White Blood Count 4.210^3/ul (4.8-10.8) Red Blood Count 3.5810^6/ul (4.20-5.40) Hemoglobin 12.1g/dl (12.0-16.0) Hematocrit 35.7% (37.0-47.0) Mean Corpuscular Volume 99.7fl (82.0-101.0) Mean Corpuscular Hemoglobin 33.8pg (29.0-33.0) Mean Corpuscular Hemoglobin Concent 33.9g/dl (32.0-37.0) Red Cell Distribution Width 11.7% (11.5-14.5) Platelet Count 81247^3/UL (140-415) Mean Platelet Volume 9.0fl (7.4-10.4) Neutrophils % 36.4% (39.0-77.0) Lymphocytes % 49.5% (15.0-51.0) Monocytes % 10.3% (0.0-11.0) Eosinophils % 3.1% (0.0-7.0) Basophils % 0.5% (0.0-2.0) Nucleated Red Blood Cells % 0.0/100WBC (0.0-0.0) Neutrophils # 1.510^3/ul (1.6-7.5) Lymphocytes # 2.110^3/ul (0.8-2.9) Monocytes # 0.410^3/ul (0.3-0.9) Eosinophils # 0.110^3/ul (0.0-0.5) Basophils # 0.010^3/ul (0.0-0.1) Nucleated Red Blood Cells # 0.010^3/ul (0.0-0.0) Prothrombin Time 12.7Sec (12.2-14.2) Prothrombin Time Ratio 1.0 INR International Normalized Ratio 0.95 Activated Partial Thromboplast Time 28.4Sec (25.0-35.0) Sodium Level 140mmol/L (135-144) Potassium Level 3.8mmol/L (3.5-5.1) Chloride Level 103mmol/L (97-110) Carbon Dioxide Level 27mmol/L (21-31) Anion Gap 14 (8-16) Blood Urea Nitrogen 18mg/dl (7-20) Creatinine 0.71mg/dl (0.44-1.00) Glucose Level 83mg/dl (70-220) Calcium Level 9.2mg/dl (8.4-10.2) Total Bilirubin 0.3mg/dl (0.2-1.3) Direct Bilirubin 0.00mg/dl (0.00-0.20) Indirect Bilirubin 0.3mg/dl (0-1.1) Aspartate Amino Transf (AST/SGOT) 24IU/L (15-46) Alanine Aminotransferase (ALT/SGPT) 26IU/L (13-69) Alkaline Phosphatase 36IU/L (42-121) Total Protein 7.3g/dl (6.1-8.1) Albumin 4.2g/dl (3.3-4.9) Globulin 3.10g/dl (1.3-3.2) Albumin/Globulin Ratio 1.35 Urine Color LT. YELLOW (YELLOW) Urine Clarity CLEAR (CLEAR) Urine pH 5.5 (5.0-9.0) Urine Specific [place] <=1.005 (1.003-1.030) Urine Ketones NEGATIVE (NEGATIVE) Urine Nitrite NEGATIVE (NEGATIVE) Urine Bilirubin NEGATIVE (NEGATIVE) Urine Urobilinogen 0.2 E.U./dL (0.1-1.0) Urine Leukocyte Esterase NEGATIVE (NEGATIVE) Urine Microscopic RBC 0-2/HPF (0) Urine Microscopic WBC 2-5/HPF (0) Urine Epithelial Cells FEW Urine Bacteria FEW Urine Hemoglobin 3+ (NEGATIVE) Urine Glucose NEGATIVE% (NEGATIVE) Urine Total Protein NEGATIVE (NEGATIVE) BALA RIGGINS MD October 01, 2016 06:44
[2016-10-01 08:14] VITALS: BP 121/58; RESP 20
[2016-10-01] MEDS: DOCUSATE SODIUM 100 MG CAP PO SCH (08:54)
[2016-10-01] MEDS: SENNA/DOCUSATE NA (8.6MG/50MG) TAB PO SCH (08:54)
[2016-10-01] MEDS ORDERED: MODAFINIL 200 MG TAB PO SCH (09:00)
[2016-10-01] MEDS ORDERED: DULOXETINE 20 MG CAP DR PO SCH (09:00)
[2016-10-01] MEDS ORDERED: LAMOTRIGINE 100 MG TAB PO SCH (09:00)
[2016-10-01] MEDS ORDERED: LOSARTAN 25 MG TAB PO SCH (09:00)
[2016-10-01] MEDS ORDERED: ASPIRIN 81 MG TAB PO SCH (09:00)
[2016-10-01] MEDS: morphine 4 MG/ML VIAL IV PRN (10:15)
== END 2016-10-01 12:00 | disposition home or self-care (01) | DRG 482 ==
LOC: REC 07:28 → MS2 20:35
PROVIDERS: ADMIT Orthopaedic Surgery; ATTEND Orthopaedic Surgery
PROC: 0SN90ZZ Release Right Hip Joint, Open Approach (ICD-10-PCS; 2016-09-30)
PROC: [UNRECOGNIZED PROCEDURE] (principal; 2016-09-30 10:00)
DX: S73.101A Unspecified sprain of right hip, initial encounter (principal); G89.29 Other chronic pain; I95.1 Orthostatic hypotension; M25.251 Flail joint, right hip; M65.9 Synovitis and tenosynovitis, unspecified
CPT/HCPCS: 73530; 80053; 81001; 81003; 84703; 85025; 85610; 85730; 97162; J0690; J1200; J1644; J2175; J2250; J2270; J2405; J2765; J3010; J7120